=== PATIENT | female | born 1995 | race African-American/Black ===

== ENCOUNTER 2017-01-06 00:25 | Emergency (ER) | payer BC ==
[2017-01-06 02:30] LABS: APPEARANCE,URINE CLEAR; BILIRUBIN,URINE NEGATIVE (NEGATIVE); GLUCOSE, URINE NEGATIVE (NEGATIVE); KETONES,URINE NEGATIVE (NEGATIVE); LEUKOCYTE ESTERASE,URINE NEGATIVE (NEGATIVE); NITRITE,URINE NEGATIVE (NEGATIVE); PROTEIN,URINE NEGATIVE (NEGATIVE); UROBILINOGEN,URINE NEGATIVE mg/dL (<2.0)
--- NOTE | 2017-01-06 02:32 | ER Document Report ---
ED General - General Chief Complaint: Pelvic Pain Stated Complaint: ABDOMINAL PAIN Time Seen by Provider: 01/06/17 01:14 Notes: Patient is a pleasant 21-year-old female who presents with complaint of some cramping type pain in the pelvic region. Pain has been ongoing for a few days. She is at the end of her menstrual period. She has had some spotting. She does have a NuvaRing which she removed earlier. She used this for control of her periods. She has not been sexually active in over a year. No recent fevers or vomiting. No diarrhea. No abnormal discharge. She does have a history of some cervical dysplasia on her previous Pap smear. She gives yearly Pap smears to follow this. No history of cancer. No history of pelvic surgeries. TRAVEL OUTSIDE OF THE [place] IN LAST 30 DAYS: No Past Medical History - Social History Smoking Status: Unknown if Ever Smoked Chew tobacco use (# tins/day): No Frequency of alcohol use: None Drug Abuse: None Family History: Reviewed & Not Pertinent Patient has suicidal ideation: No Patient has homicidal ideation: No Renal/ Medical History: Denies: Hx Peritoneal Dialysis Review of Systems - Review of Systems Notes: My Normal Review Basic REVIEW OF SYSTEMS: CONSTITUTIONAL : Denies fever, chills, or sweats. Denies recent illness. GASTROINTESTINAL: suprapubic abdominal pain. Denies nausea, vomiting, or diarrhea. Denies constipation. Last BM: GENITOURINARY: Denies difficulty urinating, painful urination, burning, frequency, or blood in urine. FEMALE GENITOURINARY: Denies vaginal bleeding, abnormal or irregular periods. LMP: On menstrual period MUSCULOSKELETAL: Denies neck or back pain or joint pain or swelling. SKIN: Denies rash or skin lesions. NEUROLOGICAL: Denies altered mental status or loss of consciousness. Denies headache. Denies weakness or paralysis or loss of use of either side. Denies problems with gait or speech. Denies sensory or motor loss. ALL OTHER SYSTEMS REVIEWED AND NEGATIVE. Physical Exam - Vital signs Vitals: Temp Pulse Resp BP Pulse Ox 97.7 F 61 18 134/84 H 99 01/06/17 00:26 01/06/17 00:26 01/06/17 00:26 01/06/17 00:26 01/06/17 00:26 - Notes Notes: General Appearance: Well nourished, alert, cooperative, no acute distress, no obvious discomfort. Vitals: reviewed, See vital signs table. Head: no swelling or tenderness to the head Eyes: PERRL, EOMI, Conjuctiva clear Lungs: No wheezing, No rales, No rhonci, No accessory muscle use, good air exchange bilaterally. Heart: Normal rate, Regular rythm, No murmur, no rub Abdomen: Normal BS, soft, No rigidity, No reproducible abdominal tenderness to palpation, No guarding, no rebound, no abdominal masses, no organomegaly Pelvic: Normal external genitalia. Moderate amount of blood in vaginal vault. Cervix is partially visualized. Extremities: strength 5/5 in all extremities, good pulses in all extremities, no swelling or tenderness in the extremities, no edema. Skin: warm, dry, appropriate color, no rash Neuro: speech clear, oriented x 3, normal affect, responds appropriately to questions. Course - Vital Signs Vital signs: Temp Pulse Resp BP Pulse Ox 97.7 F 61 18 134/84 H 99 01/06/17 00:26 01/06/17 00:26 01/06/17 00:26 01/06/17 00:26 01/06/17 00:26 - Laboratory Laboratory results interpreted by me: 01/06/17 01:39 Urine Blood SMALL H Discharge - Discharge Clinical Impression: Pain in pelvis, Mass of cervix Condition: Good Disposition: HOME, SELF-CARE Additional Instructions: [facility] and inform them that your case was discussed with Dr. Fuentes and he wants you to be seen in the office Saturday or Saturday. Please return to the ER immediately if you develop worsening pain, heavy bleeding, or feel unwell.
--- NOTE | 2017-01-06 02:45 | RADIOLOGY REPORT (SQ) ---
EXAM DESCRIPTION: U/S NON OB PEL TV W/DOPPLER COMPLETED DATE/TIME: 01/06/2017 2:32 am REASON FOR STUDY: pelvic pain COMPARISON: None. TECHNIQUE: Dynamic and static grayscale images acquired of the pelvis via transvaginal approach and recorded on PACS. Additional selected color Doppler and spectral images recorded. LIMITATIONS: None. FINDINGS: UTERUS: Contour normal. No mass. ENDOMETRIAL STRIPE: No focal or generalized thickening. No masses. CERVIX: Hypoechoic circumscribed mass measuring 1.7 x 2.7 cm. RIGHT OVARY: No abnormal masses. RIGHT OVARY DOPPLER: Normal arterial vascular flow without evidence for torsion. LEFT OVARY: Ovary not visualized. FREE FLUID: None noted. OTHER: No other significant finding. MEASUREMENTS: UTERUS: 4.0 x 7.8 cm. ENDOMETRIAL STRIPE: 4 mm. RIGHT OVARY: 0.9 x 2.3 x 2.5 cm. LEFT OVARY: Not visualized. IMPRESSION: HYPOECHOIC CIRCUMSCRIBED MASS IN THE CERVIX. POSSIBLY A CERVICAL FIBROID. NO OTHER SIG NIFICANT FINDINGS. LEFT OVARY NOT VISUALIZED. TECHNICAL DOCUMENTATION: JOB ID: [id number]- All Rights Reserved
[2017-01-06 04:55] VITALS: BP 117/66
== END 2017-01-06 04:58 | disposition home or self-care (01) ==
LOC: ER 00:25
DX: N88.8 Other specified noninflammatory disorders of cervix uteri (principal); R10.2 Pelvic and perineal pain; Z87.410 Personal history of cervical dysplasia
CPT/HCPCS: 76830; 81001; 81025; 87210; 93976; 99284